=== PATIENT | male | born 1965 | race Caucasian/White ===

== ENCOUNTER → 2019-12-06 12:31 | Outpatient (BNVA) | payer OTHER, SELFPAY | PROVIDERS: Family Provider Nurse Practitioner; PCP Emergency Medicine; Visit Provider Emergency Medicine | DX: R60.9 Edema, unspecified (principal); E66.01 Morbid (severe) obesity due to excess calories; Z68.41 Body mass index [BMI] 40.0-44.9, adult; M25.561 Pain in right knee; G89.29 Other chronic pain; M25.512 Pain in left shoulder; I10 Essential (primary) hypertension | CPT/HCPCS: 80053; 80061; 83880; 84443; 85025 ==

== ENCOUNTER 2021-05-28 11:23 | Observation (INO) | payer OTHER, SELFPAY ==
[2021-05-28] VITALS (17 sets, daily range): BP systolic 112–138; BP diastolic 69–92; PULSE 71–135; RESP 12–20; TEMP 37.2; O2SAT 92–97; BMI 39.3
--- NOTE | 2021-05-28 11:25 | ECG_ITS ---
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 Measurements Intervals [place] Rate: 131 P: [place]: QRS: -46 QRSD: 114 T: 129 QT: 311 QTc: 460 Interpretive Statements ATRIAL FIBRILLATION WITH RAPID VENTRICULAR RESPONSE LEFT ANTERIOR FASCICULAR BLOCK [QRS AXIS <= -45, QR IN I, RS IN II] POSSIBLE LEFT VENTRICULAR HYPERTROPHY [VOLTAGE CRITERIA PLUS LAE OR QRS WIDENING] ST DEVIATION AND MODERATE T-WAVE ABNORMALITY, CONSIDER LATERAL ISCHEMIA [-0.1+ mV T-WAVE IN I/aVL/V5/V6] No previous ECG available for comparison Electronically Signed On 05-30-2021 8:56:16 COMPUTER LAB PARA PROFESSIONAL by Marissa Armijo M.D. [id number]
--- NOTE | 2021-05-28 11:25 | XRR_ITS ---
PROCEDURE INFORMATION: Exam: XR Chest Exam date and time: 05/28/2021 11:25 AM Age: 56 years old Clinical indication: Shortness of breath; Additional info: SOB TECHNIQUE: Imaging protocol: XR of the chest. Views: 1 view. COMPARISON: CR Chest 2 views* [id number] 12/17/2015 12:54 PM FINDINGS: Lungs: There is redistribution and indistinctness of the pulmonary vasculature, in association with haziness of the lungs, which in the setting of cardiomegaly is suggestive of pulmonary edema. Pneumonia should be excluded clinically. No pneumothorax. Pleural spaces: See Lungs finding. Heart/Mediastinum: Stable cardiomediastinal silhouette. Bones/joints: Unremarkable. XR/XR chest 1V portable [id number] IMPRESSION: Nonspecific imaging findings, which can be seen with pulmonary edema or pneumonia. Clinical correlation is recommended.
[2021-05-28 11:58] LABS: Basophils % 0.1 %; Eosinophils # 0.2 10^3/uL (0.0-0.8); Eosinophils % 1.1 %; Hematocrit 42.4 % (42.0-52.0); Hemoglobin 14.2 g/dL (11.7-16.6); Lymphocytes # 2.1 10^3/uL (0.8-4.8); Lymphocytes % 15.1 %; Mean Corpuscular HGB Conc 33.5 g/dL (30.0-36.0); Mean Corpuscular Hemoglobin 29.5 pg (28.0-34.0); Mean Platelet Volume 11.2 fL (7.4-10.4); Monocytes # 1.6 10^3/uL (0.2-0.9); Monocytes % 11.4 %; Neutrophils # 10.09 10^3/uL (1.8-7.7); Neutrophils % 71.2 %; Nucleated Red Blood Cells % 0 %; Platelet Count 250 10^3/cmm (130-400); Red Blood Count 4.82 10^6/uL (4.1-5.3); Red Cell Distribution Width 13.8 % (12.1-15.1); White Blood Count 14.2 10^3/uL (4.0-10.0)
--- NOTE | 2021-05-28 12:00 | W.ED.SOB ---
HPI - SOB/Dyspnea General: Chief Complaint: Shortness of Breath/Dyspnea Stated Complaint: SOB; AFIB Time Seen by Provider: 05/28/21 11:55 Source: patient Mode of arrival: EMS Limitations: no limitations History of Present Illness: HPI Narrative: 56-year-old male presents emergency room with complaint of rapid heart rate. Symptoms began over the last couple days intermittently this morning he woke up and had significant racing of his heart was short of breath. He still has cough is persisted since he had COVID he states he had COVID a month ago is no known history of coronary disease he is not on any blood thinners not previously been known to have any arrhythmias. MD elicited complaint: shortness of breath Pertinent past history: other (Recently had COVID) Onset (ago): day(s) Context: recent illness (COVID 1 month ago) Timing: constant Severity: moderate Exacerbating factors: exertion Relieving factors: nothing Associated symptoms: Deny abdominal pain, chest congestion, chest pain, cough, diaphoresis, dizziness, extremity pain, fever(s), hemoptysis, lightheadedness, myalgias, nausea, orthopnea, palpitations, paresthesias, polydipsia, polyuria, rash, sense of impending doom, syncope or vomiting Treatment prior to arrival: none Review of Systems Const: Denies: fever(s) or diaphoresis ENMT: Denies: throat pain, ear or mastoid pain, nasal discharge or nasal congestion Card: Denies: chest pain, palpitations, lightheadedness, syncope or orthopnea Resp: Denies: hemoptysis or chest congestion GI: Denies: abdominal pain, nausea or vomiting : Denies: flank pain, dysuria, urinary frequency or urinary urgency Musc: Denies: extremity pain Skin/Breast: Denies: rash or pruritus Neuro: Denies: dizziness Endo: Denies: polyuria or polydipsia PFS ED PFSH: Medical History Hypertension Left shoulder pain Peripheral edema Right knee pain Surgical History S/P hip replacement Family History Mother Dementia Father History of aneurysm Social History Smoking and tobacco status: never smoked Alcohol intake: never Caregiver/support person: Yes Lives independently: No Household members: spouse Housing: House Current gender identity: Male Physical Exam Const: GENERAL APPEARANCE: cooperative and comfortable ORIENTATION/CONSCIOUSNESS: Yes awake, Yes oriented to person, Yes oriented to place and Yes oriented to time HENMT: COMMON NORMALS: normocephalic, atraumatic and hearing grossly normal bilaterally HEAD & SCALP: normocephalic and atraumatic Resp: COMMON NORMALS: normal respiratory effort, No retractions, No use of accessory muscles and clear to auscultation bilaterally AUSCULTATION: clear to auscultation bilaterally Cardio: RATE: tachycardic RHYTHM: abnormal rhythm irregularly irregular GI: COMMON NORMALS: Soft to palpation and No hepatosplenomegaly present AUSCULTATION: Yes normoactive bowel sounds PALPATION: Yes Soft to palpation, No Tenderness to palpation present (GI), No Guarding due to palpation present (GI) and Yes No hepatosplenomegaly present Extremity: COMMON NORMALS: normal to inspection, capillary refill normal, no clubbing, cyanosis or edema, no calf tenderness and no pedal edema Neuro: SENSORIUM/ORIENTATION: Yes oriented to person, Yes oriented to place and Yes oriented to time Skin: COMMON NORMALS: no rashes or lesions noted GENERAL SKIN EXAM: no rashes or lesions noted Course Vital Signs: Vital signs: Vital Signs Temperature 99.0 F 05/28/21 11:31 Pulse Rate 95 05/28/21 15:49 Respiratory Rate 14 05/28/21 15:49 Blood Pressure 125/77 05/28/21 15:49 Pulse Oximetry 96 05/28/21 15:49 MDM - SOB/Dyspnea Medical Decision Making Post Covid patient is tachycardic with new onset atrial fibrillation he is otherwise asymptomatic. Started on Cardizem rate control improved but he has not converted out of atrial fibrillation yet this is a new arrhythmia for him discussed with hospitalist orders written. Medical Records I reviewed the patient's medical records. Lab Data I reviewed the patient's lab results. : 05/28/21 11:47 05/28/21 11:47 Labs/Radiology: Radiology Impressions Chest X-Ray 05/28/21 11:25 IMPRESSION: Nonspecific imaging findings, which can be seen with pulmonary edema or pneumonia. Clinical correlation is recommended. Chest CTA 05/28/21 12:11 IMPRESSION: 1. No pulmonary embolus. 2. Imaging findings of pulmonary edema with small bilateral pleural effusions. 3. Commonly reported imaging features of (COVID-19) pneumonia are present. Other processes such as influenza pneumonia and organizing pneumonia, as can be seen with drug toxicity and connective tissue disease, can cause a similar imaging pattern. Laboratory Results WBC 14.2 10^3/uL (4.0-10.0) H 05/28/21 11:47 RBC 4.82 10^6/uL (4.1-5.3) 05/28/21 11:47 Hgb 14.2 g/dL (11.7-16.6) 05/28/21 11:47 Hct 42.4 % (42.0-52.0) 05/28/21 11:47 MCV 88.0 fl (80-94) 05/28/21 11:47 MCH 29.5 pg (28.0-34.0) 05/28/21 11:47 MCHC 33.5 g/dL (30.0-36.0) 05/28/21 11:47 RDW 13.8 % (12.1-15.1) 05/28/21 11:47 Plt Count 250 10^3/cmm (130-400) 05/28/21 11:47 MPV 11.2 fL (7.4-10.4) H 05/28/21 11:47 Neut % (Auto) 71.2 % 05/28/21 11:47 Lymph % (Auto) 15.1 % 05/28/21 11:47 [place] % (Auto) 11.4 % 05/28/21 11:47 Eos % (Auto) 1.1 % 05/28/21 11:47 Baso % (Auto) 0.1 % 05/28/21 11:47 Neut # (Auto) 10.09 10^3/uL (1.8-7.7) H 05/28/21 11:47 Lymph # (Auto) 2.1 10^3/uL (0.8-4.8) 05/28/21 11:47 [place] # (Auto) 1.6 10^3/uL (0.2-0.9) H 05/28/21 11:47 Eos # (Auto) 0.2 10^3/uL (0.0-0.8) 05/28/21 11:47 Baso # (Auto) 0.0 10^3/uL (0.0-0.1) 05/28/21 11:47 Nucleated RBC % (auto) 0 % 05/28/21 11:47 Nucleated RBCs # 0.0 /100WBC 05/28/21 11:47 Sodium 139 mmol/L (136-145) 05/28/21 11:47 Potassium 4.4 mmol/L (3.5-5.1) 05/28/21 11:47 Chloride 108 mmol/L (98-107) H 05/28/21 11:47 Carbon Dioxide 19 mmol/L (22-29) L 05/28/21 11:47 Anion Gap 16.4 (5-19) 05/28/21 11:47 BUN 27 mg/dL (6-20) H 05/28/21 11:47 Creatinine 1.1 mg/dL (0.7-1.2) 05/28/21 11:47 GFR Calculation 69.5 mL/min (90-130) L 05/28/21 11:47 Glucose 86 mg/dL (65-115) 05/28/21 11:47 Calculated Osmolality 292 mOsm/kg (285-295) 05/28/21 11:47 Calcium 7.5 mg/dL (8.5-10.5) L 05/28/21 11:47 Magnesium 2.3 mg/dL (1.7-2.3) 05/28/21 11:47 Total Bilirubin 0.8 mg/dL (0.15-1.2) 05/28/21 11:47 AST 63 U/L (0-40) H 05/28/21 11:47 ALT 178 U/L (0-41) H 05/28/21 11:47 Alkaline Phosphatase 63 IU/L (40-130) 05/28/21 11:47 Troponin T Baseline 58 ng/L (0-15) H 05/28/21 11:47 Total Protein 5.2 g/dL (6.6-8.7) L 05/28/21 11:47 Albumin 3.7 g/dL (3.5-5.2) 05/28/21 11:47 Globulin 1.5 g/dL (1.3-4.6) 05/28/21 11:47 TSH 2.79 uIU/mL (0.27-4.20) 05/28/21 11:47 Critical Care Time Critical Care Time: Total Critical Care Time: 35 Attestation: The high probability of a clinically significant, sudden or life threatening deterioration of the patient's cardiovascular system(s) required my full and direct attention, intervention and personal management. The critical care time is as shown. This time is in addition to time spent performing any reported procedures but includes the following: [x] Data and vital sign review and interpretation [x] Patient assessment, examination and intervention [x] Documentation [x] Medication orders and management Discharge Plan Discharge Patient Disposition: Admitted As Inpatient Admit Provider: Zia Lechuga Condition: Stable Coding Level of Care Code ED Egg Caser for [place]ahung Fwd Exam Detailed
--- NOTE | 2021-05-28 12:11 | CTR_ITS ---
PROCEDURE INFORMATION: Exam: CTA Chest With Contrast Exam date and time: 05/28/2021 12:11 PM Age: 56 years old Clinical indication: Other: Dyspnea/post covid/tachycardia; Prior surgery TECHNIQUE: Imaging protocol: Computed tomographic angiography of the chest with contrast. 3D rendering (Not supervised by radiologist): MIP and/or 3D reconstructed images were created by the technologist. Radiation optimization: All CT scans at this facility use at least one of these dose optimization techniques: automated exposure control; mA and/or kV adjustment per patient size (includes targeted exams where dose is matched to clinical indication); or iterative reconstruction. Contrast material: OMNI 350; Contrast volume: 95 ml; Contrast route: INTRAVENOUS (IV); COMPARISON: CR (CHEST, ) 05/28/2021 11:47 AM RADIATION DOSE METRICS: Total DLP (mGy-cm): 608.24 FINDINGS: Pulmonary arteries: Normal. No pulmonary emboli. Aorta: Unremarkable. No aortic aneurysm. No aortic dissection. Lungs: There is slight mosaic pattern of attenuation of the lungs, in association with paraseptal thickening and small bilateral pleural effusions, right greater than left. There is ground-glass opacities scattered throughout both lungs in a predominantly peripheral distribution. Pleural spaces: See Lungs finding. Heart: Mildly enlarged heart. No pericardial effusion. Lymph nodes: There is prominent reactive mediastinal and bilateral hilar lymph nodes, the largest in the paratracheal region measuring 1.7 cm in transverse dimension. Bones/joints: Degenerative changes of the spine seen. Soft tissues: Unremarkable. CT/CT angio chest PE protcl [id number] IMPRESSION: 1. No pulmonary embolus. 2. Imaging findings of pulmonary edema with small bilateral pleural effusions. 3. Commonly reported imaging features of (COVID-19) pneumonia are present. Other processes such as influenza pneumonia and organizing pneumonia, as can be seen with drug toxicity and connective tissue disease, can cause a similar imaging pattern.
[2021-05-28 12:38] LABS: Troponin(5th) Baseline 58 ng/L (0-15)
[2021-05-28 12:45] LABS: Alanine Aminotransferase 178 U/L (0-41); Albumin Level 3.7 g/dL (3.5-5.2); Alkaline Phosphatase 63 IU/L (40-130); Anion Gap 16.4 (5-19); Aspartate Amino Transferase 63 U/L (0-40); Blood Urea Nitrogen 27 mg/dL (6-20); Calcium 7.5 mg/dL (8.5-10.5); Carbon Dioxide 19 mmol/L (22-29); Chloride 108 mmol/L (98-107); Globulin 1.5 g/dL (1.3-4.6); Glomerular Filtration Rate 69.5 mL/min (90-130); Glucose 86 mg/dL (65-115); Magnesium 2.3 mg/dL (1.7-2.3); Osmolality Calculated 292 mOsm/kg (285-295); Potassium 4.4 mmol/L (3.5-5.1); Sodium 139 mmol/L (136-145); Thyroid Stimulating Hormone 2.79 uIU/mL (0.27-4.20); Total Bilirubin 0.8 mg/dL (0.15-1.2); Total Protein 5.2 g/dL (6.6-8.7)
[2021-05-28] MEDS: iohexol 350 mg/mL 100 mL Btl IV (13:13)
--- NOTE | 2021-05-28 13:43 | P.HP_ITS ---
Providers/Chief Complaint Admitting Physician: Zia Lechuga MD Primary Care Provider: BAKARI Jones Chief Complaint: SOB; AFIB History of Present Illness Rikki Saleem is a 56 year old male with a past medical history of hypertension, history of COVID-19 infection 2 weeks ago, hyperlipidemia, obesity, who presents [facility] due to chest palpitations, shortness of breath, lower extremity edema, orthopnea, paroxysmal nocturnal dyspnea for the last few days. Patient has a positive for COVID-19 roughly 2 weeks ago, no history of COVID vaccination, no history of flu vaccinations, he presented to his primary care provider a few days ago, with his symptoms, was given Decadron, and azithromycin. However he continued to feel short of breath, lower extreme edema, orthopnea, proximal nocturnal dyspnea, he tells me that his CPAP machine is on recall, so he can use a CPAP machine to help with his sleeping, he started to notice chest palpitations this morning so he decided to come to the emergency room. Review of Systems Const: Denies: fever(s), chills, fatigue or malaise Eyes: Denies: change in vision or blurry vision ENMT: Denies: nasal congestion Card: Reports: palpitations, irregular heart rhythm, edema, dyspnea on exertion and orthopnea; Denies: chest pain Resp: Reports: dyspnea; Denies: productive cough, non-productive cough or wheezing GI: Denies: abdominal pain, nausea, vomiting, hematemesis, diarrhea, constipation, hematochezia or melena : Denies: flank pain, difficulty urinating, dysuria or urinary frequency Musc: Denies: neck pain or back pain Skin/Breast: Denies: rash Neuro: Denies: headache(s) or dizziness Psych: Denies: anxiety Endo: Denies: polyuria or polydipsia Medications/Allergies Home Medications Medication Instructions Recorded Confirmed Last Taken Type cholecalciferol (vitamin D3) 25 1,000 unit PO QDAY 05/10/19 03/06/20 Unknown History mcg (1,000 unit) capsule amlodipine 10 mg tablet 10 mg PO QDAY 90 Days #90 tab 12/06/19 03/06/20 Unknown Rx ibuprofen 200 mg tablet 800 mg PO Q6H PRN tab 12/06/19 03/06/20 Unknown History lisinopril 10 mg tablet 10 mg PO QDAY 90 Days #90 tab 12/06/19 03/06/20 Unknown Rx albuterol sulfate 90 mcg/actuation 1 inh INHALATION QID 05/21/21 Unknown History aerosol inhaler Allergies Allergy/AdvReac Type Severity Reaction Status Date / Time No Known Allergies Allergy Verified 05/28/21 11:31 PFSH Acute PFSH: Medical History (Updated 05/28/21 @ 13:49 by Zia Lechuga MD) Hypertension Left shoulder pain Peripheral edema Right knee pain Surgical History (Updated 05/28/21 @ 13:46 by Zai Lechuga MD) S/P hip replacement Family History (Updated 05/28/21 @ 13:47 by Zia Lechuga MD) Mother Dementia Father History of aneurysm Social History Smoking and tobacco status: never smoked Alcohol intake: never Caregiver/support person: Yes Lives independently: No Household members: spouse Housing: House Current gender identity: Male Vitals/I&O/Wt Last Vital Signs Temp 99.0 F 05/28/21 11:31 Pulse 101 H 05/28/21 13:21 Resp 12 05/28/21 13:21 BP 118/69 05/28/21 13:01 Pulse Ox 96 05/28/21 13:21 Weight last 48 hrs Weight 131.542 kg Physical Exam Const: COMMON NORMALS: no acute distress and patient oriented x3 GENERAL APPEARANCE: cooperative, well kempt and well developed HENMT: COMMON NORMALS: normocephalic and Normal external nose present HEAD & SCALP: normocephalic NOSE: Normal external nose present Eye: COMMON NORMALS: Equal, round and reactive pupils present, EOMs intact bilaterally and conjunctivae normal PUPIL: Yes Equal, round and reactive pupils present Neck/C-Spine: COMMON NORMALS: full ROM, no lymphadenopathy, Thyroid normal and No carotid bruits Lymph: LYMPHATIC: no lymphadenopathy noted Chest: COMMONS NORMALS: normal inspection of the chest Resp: COMMON NORMALS: normal respiratory effort, No retractions, No use of accessory muscles and clear to auscultation bilaterally AUSCULTATION: clear to auscultation bilaterally Cardio: COMMON NORMALS: S1 normal heart sound present, S2 normal heart sound present, No murmurs present (Cardio) and Peripheral pulses 2+ throughout RATE: tachycardic RHYTHM: abnormal rhythm HEART SOUNDS: S1 normal heart sound present and S2 normal heart sound present PERIPHERAL PULSES: Peripheral pulses 2+ throughout GI: COMMON NORMALS: Normal to inspection, nondistended, normoactive bowel sounds present, Soft to palpation, non-tender and No hepatosplenomegaly present : BLADDER/KIDNEY EXAM: Yes no CVA tenderness Back/Pelvis: COMMON NORMALS: no CVA tenderness Extremity: COMMON NORMALS: normal to inspection, full ROM, capillary refill n ormal and no calf tenderness Neuro: COMMON NORMALS: patient oriented x3, CN's II-XII intact bilaterally, moves all extremities, no focal motor deficits and no sensory deficits noted MENINGEAL SIGNS: Yes no meningeal signs Psych: COMMON NORMALS: mental status grossly normal, Normal thought process present, cooperative and speech normal APPEARANCE: Yes well kempt SPEECH: Yes normal speech THOUGHT PROCESS: Normal thought process present Skin: COMMON NORMALS: turgor normal and no jaundice NARRATIVE SKIN EXAM: 1+ pitting edema bilaterally GENERAL SKIN EXAM: turgor normal Data : 05/28/21 11:47 05/28/21 11:47 A&P Assessment and plan (1) Atrial fibrillation with RVR: Status: Acute (2) Fluid overload: Status: Acute (3) NSTEMI (non-ST elevated myocardial infarction): Status: Acute (4) History of COVID-19: Status: Acute (5) Transaminitis: Status: Acute (6) Chronic kidney disease: Status: Acute Plan Atrial fibrillation, with rapid ventricular response -Continue Cardizem drip -Transition to p.o. Cardizem -Therapeutic Lovenox, transition to Eliquis on discharge -Patient history of COVID-19 infection, CT angiogram of the chest ordered to evaluate for possible pulmonary emboli -TSH within normal limits, mag within normal limits, potassium within normal limits -Has evidence of fluid overload, Lasix and metolazone, BNP pending -Cardiac echocardiogram pending -Full code -Lovenox for DVT prophylaxis Fluid overload, bilateral from edema, Lasix, and metolazone Chronic kidney disease, monitor creatinine Leukocytosis, likely secondary Decadron NSTEMI, serial troponins, serial EKGs, likely secondary to supply demand ischemia from atrial fibrillation, however cannot rule out underlying cardiac etiology, continue aspirin, lipid panel pending, therapeutic Lovenox, monitor for chest pain Transaminitis, continue to monitor Attestations Medical Necessity Statement*: Patient requires hospitalization, outpatient with observation, for A. fib with RVR, fluid overload, NSTEMI Coding Level of Care Code Acute Shuttle Fixer for Chg Fwd Diagnoses Atrial fibrillation with RVR I48.91 Fluid overload E87.70 NSTEMI (non-ST elevated myocardial infarction) I21.4 History of COVID-19 Z86.16 Transaminitis R74.01 Chronic kidney disease N18.9
--- NOTE | 2021-05-28 14:12 | ECG_ITS ---
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 Measurements Intervals [place] Rate: 105 P: [place]: QRS: -42 QRSD: 118 T: 121 QT: 379 QTc: 501 Interpretive Statements ATRIAL FIBRILLATION WITH RAPID VENTRICULAR RESPONSE LEFT AXIS DEVIATION [QRS AXIS < -30] MODERATE INTRAVENTRICULAR CONDUCTION DELAY [110+ ms QRS DURATION] NONSPECIFIC T-WAVE ABNORMALITY Compared to ECG 05/28/2021 11:40:33 Left-axis deviation now present Intraventricular conduction delay now present Left anterior fascicular block no longer present Possible ischemia no longer present T-wave abnormality still present Electronically Signed On 05-30-2021 8:55:22 STUDY COORDINATOR by Marissa Armijo M.D. [id number]
[2021-05-28 15:07] LABS: INR 1.21 (0.8-1.2)
[2021-05-28 15:20] LABS: Troponin 5 2HR 55.35 ng/L (0-15)
[2021-05-28 15:23] LABS: Troponin 5 2HR Delta -2.65 ABS# (0-10)
[2021-05-28] MEDS: enoxaparin 30 mg/0.3 mL Syringe SUBCUT (18:11)
[2021-05-28] MEDS: dilTIAZem 60 mg Tablet PO ×2 (18:11→22:18)
[2021-05-28] MEDS: famotidine 20 mg Tablet PO (18:11)
[2021-05-28] MEDS: enoxaparin 100 mg/mL Syringe SUBCUT (18:11)
[2021-05-28] MEDS: metOLazone 5 MG Tablet PO (18:12)
[2021-05-28] MEDS: FUROsemide 10 mg/mL SDV 4mL 40 MG IVP (18:12)
--- NOTE | 2021-05-28 18:12 | ECG_ITS ---
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 Measurements Intervals [place] Rate: 100 P: [place]: QRS: -44 QRSD: 120 T: 116 QT: 374 QTc: 484 Interpretive Statements ATRIAL FIBRILLATION WITH RAPID VENTRICULAR RESPONSE LEFT AXIS DEVIATION [QRS AXIS < -30] POSSIBLE LEFT VENTRICULAR HYPERTROPHY [VOLTAGE CRITERIA PLUS LAE OR QRS WIDENING] MODERATE T-WAVE ABNORMALITY, CONSIDER LATERAL ISCHEMIA [-0.1+ mV T-WAVE IN I/aVL/V5/V6] Compared to ECG 05/28/2021 16:03:00 Possible ischemia now present Intraventricular conduction delay no longer present T-wave abnormality still present Electronically Signed On 05-30-2021 8:52:55 NON LICENSED OPERATOR by Marissa Armijo M.D. [email or web address]/store/[id number]
[2021-05-28 19:07] LABS: Troponin 5 6HR 60.68 ng/L (0-15)
[2021-05-28 19:14] LABS: Chol HDL Ratio 3.58 mg/dL (1.0-5.00); Cholesterol 136 mg/dL (0-200); HDL Cholesterol 38 mg/dL (60-100); LDL Cholesterol Calculated 80 mg/dL (50-129); LDL HDL Ratio 2.11 RATIO (0.00-3.22); NT Pro B Type Natriuretic Pept 3952 pg/mL (0-125); Triglycerides 88 mg/dL (0-150)
[2021-05-28 19:17] LABS: Troponin 5 6HR Delta 2.68 ng/L (0-12)
--- NOTE | 2021-05-28 20:05 | PC.NURSE ---
Shift Note Frequent safety and comfort rounds continue. Orders and/or nursing care completed as indicated. Patient monitored for response to intervention and treatment(s). Education provided includes cardizem drip, diuretics such as lasix and metolazone, telemetry. Patient and/or credit representative verbalizes understanding. Will continue to monitor.
[2021-05-29] VITALS (8 sets, daily range): BP systolic 109–121; BP diastolic 58–70; PULSE 71–99; RESP 20–21; TEMP 36.7–36.8; O2SAT 93–98
[2021-05-29 00:30] LABS: Estmated Average Glucose 111; Hemoglobin A1C 5.5 % (4.0-6.0)
[2021-05-29 03:41] LABS: Basophils % 0.3 %; Eosinophils # 0.4 10^3/uL (0.0-0.8); Eosinophils % 3.2 %; Hematocrit 45.7 % (42.0-52.0); Hemoglobin 14.1 g/dL (11.7-16.6); Lymphocytes # 2.2 10^3/uL (0.8-4.8); Lymphocytes % 17.6 %; Mean Corpuscular HGB Conc 30.9 g/dL (30.0-36.0); Mean Corpuscular Hemoglobin 29.9 pg (28.0-34.0); Mean Platelet Volume 11.1 fL (7.4-10.4); Monocytes # 1.3 10^3/uL (0.2-0.9); Monocytes % 10.5 %; Neutrophils # 8.24 10^3/uL (1.8-7.7); Neutrophils % 67.4 %; Nucleated Red Blood Cells % 0 %; Platelet Count 210 10^3/cmm (130-400); Red Blood Count 4.71 10^6/uL (4.1-5.3); Red Cell Distribution Width 14.2 % (12.1-15.1); White Blood Count 12.2 10^3/uL (4.0-10.0)
[2021-05-29 04:00] LABS: Blood Urea Nitrogen 24 mg/dL (6-20); Calcium 7.4 mg/dL (8.5-10.5); Carbon Dioxide 23 mmol/L (22-29); Chloride 105 mmol/L (98-107); Glomerular Filtration Rate 62.9 mL/min (90-130); Glucose 94 mg/dL (65-115); Magnesium 2.3 mg/dL (1.7-2.3); Osmolality Calculated 288 mOsm/kg (285-295); Phosphorus 4.4 mg/dL (2.5-4.5); Sodium 137 mmol/L (136-145)
[2021-05-29] MEDS: dilTIAZem 60 mg Tablet PO ×2 (05:35→09:47)
[2021-05-29] MEDS: enoxaparin 100 mg/mL Syringe SUBCUT (05:36)
[2021-05-29] MEDS: enoxaparin 30 mg/0.3 mL Syringe SUBCUT (05:36)
--- NOTE | 2021-05-29 07:50 | PC.NURSE ---
Patient arrived on unit, attached to continuous blood pressure and heart monitoring and was monitored for complications of femoral arterial sheath placement throughout. Patient resting comfortably and does not appear to be in any distress. Continuous monitoring in place.
[2021-05-29 08:03] LABS: Iron 41 ug/dL (59-158)
[2021-05-29 09:00] LABS: Percent Saturation 18.5 % (20-50); Total Iron Binding Capacity 221 mcg/dl; Unsaturated Iron Binding 180 ug/dL (112-347)
[2021-05-29] MEDS: aspirin 81 mg Chew Tablet PO (09:46)
[2021-05-29] MEDS: FUROsemide 10 mg/mL SDV 4mL 40 MG IVP (09:46)
[2021-05-29] MEDS: famotidine 20 mg Tablet PO (09:47)
[2021-05-29] MEDS: cholecalciferol (vitamin D3) 1,000 unit Tablet 1000 UNIT PO (09:47)
--- NOTE | 2021-05-29 10:00 | PC.NURSE ---
benja gonzalez provided to pt for 30 day free trial. educated on his new meds actions, dosing, timing, and possible side effects. continued home meds and discontinued ones. pt verbalizes understanding.
--- NOTE | 2021-05-29 11:31 | PM.DCS ---
Discharge Providers Date of Admission: 05/28/21 12:50 Date of Discharge: May 29, 2021 Attending Provider at Admission: Zia Lechuga MD Attending Provider at Discharge: Devonte Berry MD Primary Care Provider: BAKARI Jones Diagnoses at Discharge Discharge Diagnosis (1) Atrial fibrillation with RVR: Status: Acute (2) Fluid overload: Status: Acute (3) NSTEMI (non-ST elevated myocardial infarction): Status: Acute (4) History of COVID-19: Status: Acute (5) Transaminitis: Status: Acute (6) Chronic kidney disease: Status: Acute Reason for Visit Reason for Visit: SOB; AFIB Hospital Course Hospital Course History as per H&P: Rikki Saleem is a 56 year old male with a past medical history of hypertension, history of COVID-19 infection 2 weeks ago, hyperlipidemia, obesity, who presents [facility] due to chest palpitations, shortness of breath, lower extremity edema, orthopnea, paroxysmal nocturnal dyspnea for the last few days.? Patient has a positive for COVID-19 roughly 2 weeks ago, no history of COVID vaccination, no history of flu vaccinations, he presented to his primary care provider a few days ago, with his symptoms, was given Decadron, and azithromycin.? However he continued to feel short of breath, lower extreme edema, orthopnea, proximal nocturnal dyspnea, he tells me that his CPAP machine is on recall, so he can use a CPAP machine to help with his sleeping, he started to notice chest palpitations this morning so he decided to come to the emergency room Hospital course: Patient admitted to hospital for further management of atrial fibrillation with rapid ventricular response and congestive heart failure. He was started on Cardizem drip and later transitioned over to oral Cardizem. Patient was started on IV diuresis. By the day of discharge he was 3 L negative. Patient is feeling a lot better. Denies any orthopnea. Is on room air. Echocardiogram was done but the report is awaited. Patient was advised to stay in the hospital for one more day but he really wants to go home so hence if discharged. Is been discharged on oral Cardizem, Eliquis for anticoagulation and Lasix. He is to follow-up with his primary care provider within 1 week for repeat BMP. Patient verbalized discharge and discharge instructions. Physical Exam Const: COMMON NORMALS: no acute distress and patient oriented x3 GENERAL APPEARANCE: cooperative, well kempt and well developed HENMT: COMMON NORMALS: normocephalic and Normal external nose present HEAD & SCALP: normocephalic NOSE: Normal external nose present Eye: COMMON NORMALS: Equal, round and reactive pupils present, EOMs intact bilaterally and conjunctivae normal CONJUNCTIVA: Yes conjunctivae normal PUPIL: Yes Equal, round and reactive pupils present Neck/C-Spine: COMMON NORMALS: full ROM, no lymphadenopathy, no meningeal signs, Thyroid normal and No carotid bruits THYROID: Thyroid normal Lymph: LYMPHATIC: no lymphadenopathy noted Chest: COMMONS NORMALS: normal inspection of the chest Resp: COMMON NORMALS: normal respiratory effort, No retractions, No use of accessory muscles and clear to auscultation bilaterally AUSCULTATION: clear to auscultation bilaterally Cardio: COMMON NORMALS: S1 normal heart sound present, S2 normal heart sound present, No murmurs present (Cardio) and Peripheral pulses 2+ throughout RATE: tachycardic RHYTHM: abnormal rhythm HEART SOUNDS: S1 normal heart sound present and S2 normal heart sound present PERIPHERAL PULSES: Peripheral pulses 2+ throughout GI: COMMON NORMALS: Normal to inspection, nondistended, normoactive bowel sounds present, Soft to palpation, non-tender and No hepatosplenomegaly present PALPATION: Yes Soft to palpation and Yes No hepatosplenomegaly present : COMMON NORMALS: Yes no CVA tenderness BLADDER/KIDNEY EXAM: Yes no CVA tenderness Back/Pelvis: COMMON NORMALS: no CVA tenderness Extremity: COMMON NORMALS: normal to inspection, full ROM, capillary refill normal and no calf tenderness Neuro: COMMON NORMALS: patient oriented x3, CN's II-XII intact bilaterally, moves all extremities, no focal motor deficits and no sensory deficits noted MENINGEAL SIGNS: Yes no meningeal signs Psych: COMMON NORMALS: mental status grossly normal, Normal thought process present, cooperative and speech normal APPEARANCE: Yes well kempt SPEECH: Yes normal speech THOUGHT PROCESS: Normal thought process present Skin: COMMON NORMALS: turgor normal and no jaundice NARRATIVE SKIN EXAM: 1+ pitting edema bilaterally GENERAL SKIN EXAM: turgor normal Discharge Data Studies Completed and Pending Completed Studies During Hospitalization Category Date Time Status CT angio chest PE protcl [id number] Stat Cat Scan 05/28/21 12:11 Completed XR chest 1V portable [id number] Urgent Exams 05/28/21 11:25 Completed Pending at discharge Category Date Time Status Complete Blood Count w/Auto AM LABS Lab 05/30/21 04:00 Ordered Comprehensive Metabolic Panel AM LABS Lab 05/30/21 04:00 Ordered Hemoglobin A1C AM LABS Lab 05/30/21 04:00 Ordered Magnesium AM LABS Lab 05/30/21 04:00 Ordered Magnesium AM LABS Lab 05/31/21 04:00 Ordered Phosphorus AM LABS Lab 05/30/21 04:00 Ordered Phosphorus AM LABS Lab 05/31/21 04:00 Ordered Urinalysis Routine Lab 05/29/21 07:28 Uncollected CV. echo complete* [id number] Routine Ultrasound 05/29/21 17:05 Taken Radiology Impressions Chest X-Ray 05/28/21 11:25 IMPRESSION: Nonspecific imaging findings, which can be seen with pulmonary edema or pneumonia. Clinical correlation is recommended. Chest CTA 05/28/21 12:11 IMPRESSION: 1. No pulmonary embolus. 2. Imaging findings of pulmonary edema with small bilateral pleural effusions. 3. Commonly reported imaging features of (COVID-19) pneumonia are present. Other processes such as influenza pneumonia and organizing pneumonia, as can be seen with drug toxicity and connective tissue disease, can cause a similar imaging pattern. Laboratory Results WBC 12.2 10^3/uL (4.0-10.0) H 05/29/21 02:35 RBC 4.71 10^6/uL (4.1-5.3) 05/29/21 02:35 Hgb 14.1 g/dL (11.7-16.6) 05/29/21 02:35 Hct 45.7 % (42.0-52.0) 05/29/21 02:35 MCV 97.0 fl (80-94) H D 05/29/21 02:35 MCH 29.9 pg (28.0-34.0) 05/29/21 02:35 MCHC 30.9 g/dL (30.0-36.0) D 05/29/21 02:35 RDW 14.2 % (12.1-15.1) 05/29/21 02:35 Plt Count 210 10^3/cmm (130-400) 05/29/21 02:35 MPV 11.1 fL (7.4-10.4) H 05/29/21 02:35 Neut % (Auto) 67.4 % 05/29/21 02:35 Lymph % (Auto) 17.6 % 05/29/21 02:35 [place] % (Auto) 10.5 % 05/29/21 02:35 Eos % (Auto) 3.2 % 05/29/21 02:35 Baso % (Auto) 0.3 % 05/29/21 02:35 Neut # (Auto) 8.24 10^3/uL (1.8-7.7) H 05/29/21 02:35 Lymph # (Auto) 2.2 10^3/uL (0.8-4.8) 05/29/21 02:35 [place] # (Auto) 1.3 10^3/uL (0.2-0.9) H 05/29/21 02:35 Eos # (Auto) 0.4 10^3/uL (0.0-0.8) 05/29/21 02:35 Baso # (Auto) 0.0 10^3/uL (0.0-0.1) 05/29/21 02:35 Nucleated RBC % (auto) 0 % 05/29/21 02:35 Nucleated RBCs # 0.0 /100WBC 05/29/21 02:35 PT 15.60 SECONDS (12.1-14.9) H 05/28/21 14:48 INR 1.21 (0.8-1.2) H 05/28/21 14:48 Sodium 137 mmol/L (136-145) 05/29/21 02:35 Potassium 4.0 mmol/L (3.5-5.1) 05/29/21 02:35 Chloride 105 mmol/L (98-107) 05/29/21 02:35 Carbon Dioxide 23 mmol/L (22-29) 05/29/21 02:35 Anion Gap 13.0 (5-19) 05/29/21 02:35 BUN 24 mg/dL (6-20) H 05/29/21 02:35 Creatinine 1.2 mg/dL (0.7-1.2) 05/29/21 02:35 GFR Calculation 62.9 mL/min (90-130) L 05/29/21 02:35 Glucose 94 mg/dL (65-115) 05/29/21 02:35 Estimat Average Glucose 111 05/28/21 18:29 Hemoglobin A1c 5.5 % (4.0-6.0) 05/28/21 18:29 Calculated Osmolality 288 mOsm/kg (285-295) 05/29/21 02:35 Calcium 7.4 mg/dL (8.5-10.5) L 05/29/21 02:35 Phosphorus 4.4 mg/dL (2.5-4.5) 05/29/21 02:35 Magnesium 2.3 mg/dL (1.7-2.3) 05/29/21 02:35 Iron 41 ug/dL (59-158) L 05/29/21 02:35 TIBC 221 mcg/dl 05/29/21 02:35 % Saturation 18.5 % (20-50) L 05/29/21 02:35 Unsat Iron Binding 180 ug/dL (112-347) 05/29/21 02:35 Total Bilirubin 0.8 mg/dL (0.15-1.2) 05/28/21 11:47 AST 63 U/L (0-40) H 05/28/21 11:47 ALT 178 U/L (0-41) H 05/28/21 11:47 Alkaline Phosphatase 63 IU/L (40-130) 05/28/21 11:47 Troponin T Baseline 58 ng/L (0-15) H 05/28/21 11:47 Troponin T 120 Minute 55.35 ng/L (0-15) H 05/28/21 14:48 Delta Troponin T -2.65 ABS# (0-10) L 05/28/21 14:48 Troponin T Hi Sens 6Hr 60.68 ng/L (0-15) H 05/28/21 18:29 Troponin T Hi Sens 6Hr Delta 2.68 ng/L (0-12) 05/28/21 18:29 NT-Pro-B Natriuret Pep 3952 pg/mL (0-125) H 05/28/21 18:29 Total Protein 5.2 g/dL (6.6-8.7) L 05/28/21 11:47 Albumin 3.7 g/dL (3.5-5.2) 05/28/21 11:47 Globulin 1.5 g/dL (1.3-4.6) 05/28/21 11:47 Triglycerides 88 mg/dL (0-150) 05/28/21 18: Cholesterol 136 mg/dL (0-200) 05/28/21 18:29 LDL Cholesterol, Calc 80 mg/dL (50-129) 05/28/21 18:29 HDL Cholesterol 38 mg/dL (60-100) L 05/28/21 18:29 LDL/HDL Ratio 2.11 RATIO (0.00-3.22) 05/28/21 18: Cholesterol/HDL Ratio 3.58 mg/dL (1.0-5.00) 05/28/21 18: TSH 2.79 uIU/mL (0.27-4.20) 05/28/21 11:47 Vitals Last Vital Signs Temp 98.2 F 05/29/21 08:00 Pulse 93 05/29/21 08:00 Resp 20 H 05/29/21 08:00 BP 113/70 05/29/21 08:00 Pulse Ox 93 05/29/21 08:00 Discharge Plan Discharge Patient Disposition: Home Condition: Stable Prescriptions: New furosemide [Lasix] 40 mg tablet 40 mg PO DAILY Qty: 30 0RF diltiazem HCl [Cardizem CD] 300 mg capsule,extended release 24hr 300 mg PO DAILY Qty: 30 0RF Eliquis 5 mg tablet 5 mg PO BID Qty: 60 0RF potassium chloride 10 mEq capsule, extended release 10 meq PO BID Qty: 60 0RF Continued cholecalciferol (vitamin D3) 1,000 unit capsule 1,000 unit PO DAILY 0RF albuterol sulfate 90 mcg/actuation HFA aerosol inhaler 1 inh inhalation QID PRN (Reason: Shortness Of Breath) 0RF meloxicam 7.5 mg tablet 7.5 mg PO DAILY 0RF Discontinued amlodipine 10 mg tablet 10 mg PO DAILY 0RF lisinopril 10 mg tablet 10 mg PO DAILY 0RF Discharge Orders: Discharge Order (Routine); Ordered 05/29/21 Ordered By: Devonte Berry Referrals: Alesha Macdonald DPM [Referring] - Cheo Cuellar PA [Primary Care Provider] - 7-10 days Discharge Diet: Cardiac Discharge Activity: Resume usual activity Patient Instructions: Opioid Safety Activity Restrictions/Additional Instructions: Please follow-up with your primary care provider within next 1 week for repeat BMP. Your antihypertensives/blood pressure medications have been changed. Do not take amlodipine and lisinopril. Take Cardizem 300 mg daily. Eliquis 5 mg twice daily is the blood thinner. Take Lasix 40 mg daily which is the water pill along with potassium 10 mEq two times a day. Restrict fluid to up to 2 L a day which includes your water, juice, coffee and any other beverages. Try not to take more than 2 g of salt daily. Please check your body weight. If your body weight increases by 5 pound in a week take extra dose of Lasix that day. Discharge Attestations Time Spent in Discharge Care*: greater than 30 min Specific Discharge Activities: educating patient, discussing with ed case manager/social workers/dc planners, documenting/other paperwork and evaluating patient/reviewing data Time Spent in Smoking Cessation: 3 to 10 minutes Status at Discharge: Cognitive status at discharge: cognitively intact, Behavioral status at discharge: cooperative, Functional status at discharge: independent ambulation, Overall status at discharge: patient is progressing back to baseline Quality Metrics Clinical Quality Measures [ No reported AMI, CVA or VTE this stay] Coding Level of Care Code Acute Chg FW DC note Diagnoses Atrial fibrillation with RVR I48.91 Fluid overload E87.70 NSTEMI (non-ST elevated myocardial infarction) I21.4 History of COVID-19 Z86.16 Transaminitis R74.01 Chronic kidney disease N18.9
--- NOTE | 2021-05-29 15:13 | PC.NURSE ---
Discharge Note Patient discharged to home via ambulation to their private vehicle accompanied by . Discharge instructions reviewed with patient and/or school admissions representative. Mobile pharmacy medications and/or prescriptions provided. Belongings/home medications returned.
--- NOTE | 2021-05-29 17:05 | USCV_ITS ---
Rikki Saleem Age: 56 Gender: M : 1965 Exam Date: 05/29/2021 07:53 Ordering Phys: Zia Lechuga MD Technologist: Exam Location: [facility] [place] Indication: SOB BP: 140 / 87 HR: 102 Rhythm: Atrial fibrillation Technical Quality: Adequate MEASUREMENTS (Male / Female) Normal Values 2D ECHO LV Diastolic Diameter PLAX 7.0 cm 4.2 - 5.9 / 3.9 - 5.3 cm LV Systolic Diameter PLAX 5.3 cm IVS Diastolic Thickness 1.0 cm 0.6 - 1.0 / 0.6 - 0.9 cm IVS Systolic Thickness 1.5 cm LVPW Diastolic Thickness 1.2 cm 0.6 - 1.0 / 0.6 - 0.9 cm LVPW Systolic Thickness 1.6 cm LVOT Diameter 2.1 cm LV Ejection Fraction 2D Teich 46.4 % LV Ejection Fraction MOD 2C 44.2 % LV Ejection Fraction 2C AL 44.5 % LA Diameter 4.7 cm LA Width 4.6 cm LA Height 6.3 cm RA Width 6.0 cm RA Height 6.3 cm M-MODE Aortic Annulus Diameter 3.9 cm LA Ao Ratio MM 1.2 MV E Point Septal Separation 2.6 cm DOPPLER AV Peak Velocity 271.0 cm/s LVOT Peak Velocity 80.0 cm/s AV Area Cont Eq vti 0.9 cm squared AV Area Cont Eq pk 1.0 cm squared MV Area PHT 5.0 cm squared Mitral E to A Ratio 2.8 MV E' Velocity 66.0 cm/s Mitral E to MV E' Ratio 14.4 Mitral E to LV E' Lateral Ratio 12.7 Mitral E to LV E' Septal Ratio 16.5 TR Peak Velocity 305.0 cm/s TR Peak Gradient 37.2 mmHg PV Peak Velocity 109.0 cm/s FINDINGS Left Ventricle Moderately dilated left ventricle. Severely decreased left ventricular systolic function. Left ventricular ejection fraction is estimated at 20-25%. Severe global left ventricular hypokinesis more prononunced in septal wall. Restrictive filling pattern, severely elevated filling pressures. Right Ventricle Normal right ventricular size and systolic function. Right ventricular systolic pressure 45 mmHg. Right Atrium Normal right atrial size. Left Atrium Mildly increased left atrial size. Mitral Valve Moderately thickened mitral valve. No mitral valve stenosis. Mild mitral valve regurgitation. Aortic Valve Moderately thickened and calcified trileaflet aortic valve. Aortic valve sclerosis without stenosis. Moderate aortic valve regurgitation. Tricuspid Valve Structurally normal tricuspid valve. Trace tricuspid valve regurgitation. Pulmonic Valve Pulmonic valve not well visualized. Pericardium No pericardial effusion. Aorta Normal size aortic root. CONCLUSIONS 1. Moderately dilated left ventricle. Severely decreased left ventricular systolic function. Left ventricular ejection fraction is estimated at 20-25%. Severe global left ventricular hypokinesis more prononunced in septal wall. Restrictive filling pattern, severely elevated filling pressures. 2. Normal right ventricular size and systolic function. 3. Aortic valve sclerosis without stenosis. Moderate aortic valve regurgitation. 4. Pulmonary artery pressure estimated at 45 mm Hg. 5. No prior similar studies to compare. Marissa Armijo MD (Electronically Signed) Final Date: 29 May 2021 13:29 S
== END 2021-05-29 15:13 | disposition home or self-care (01) ==
LOC: ER 12:27 → ER IP 15:47 → CSU 05-29 06:51
PROVIDERS: Emergency Medicine; Admitting Provider Family Medicine; Emergency Provider Family Medicine; PCP Emergency Medicine; Visit Provider Student in an Organized Health Care Education/Training Program
DX: I48.91 Unspecified atrial fibrillation (principal); E87.70 Fluid overload, unspecified; I21.4 Non-ST elevation (NSTEMI) myocardial infarction; Z86.16 Personal history of COVID-19; R74.01 Elevation of levels of liver transaminase levels; N18.9 Chronic kidney disease, unspecified; I13.0 Hypertensive heart and chronic kidney disease with heart failure and stage 1 through stage 4 chronic kidney disease, or unspecified chronic kidney disease; I50.9 Heart failure, unspecified; E78.5 Hyperlipidemia, unspecified; E66.9 Obesity, unspecified; Z68.39 Body mass index [BMI] 39.0-39.9, adult; R60.0 Localized edema
CPT/HCPCS: 36415; 71045; 71275; 80048; 80053; 80061; 83036; 83540; 83550; 83735; 83880; 84100; 84443; 84484; 85025; 85610; 93005; 93306; 96365; 96366; 96367; 96372; 96375; 99285; G0378; J1650; J1940; J3490; Q9967

== ENCOUNTER → 2021-12-21 15:03 | Outpatient (BNVA) | payer MEDICAID, SELFPAY | PROVIDERS: Visit Provider Emergency Medicine | DX: M19.011 Primary osteoarthritis, right shoulder (principal); M25.511 Pain in right shoulder; G89.29 Other chronic pain | CPT/HCPCS: 73030 ==

== ENCOUNTER → 2022-07-01 10:00 | Outpatient (BNVA) | payer MEDICAID, SELFPAY | PROVIDERS: PCP Family Medicine; Visit Provider Emergency Medicine | DX: S69.91XA Unspecified injury of right wrist, hand and finger(s), initial encounter (principal); X58.XXXA Exposure to other specified factors, initial encounter | CPT/HCPCS: 73110 ==